=== PATIENT | female | born 2000 | race Hispanic/Latino ===

== ENCOUNTER 2024-04-17 22:00 | Emergency (ER) | payer SELFPAY ==
--- OUTSIDE RECORDS SUMMARY | 2024-04-17 22:03 | XMS REPORT | Continuity of Care Document ---
Author Name Unknown Address [address] [facility] [address] [place] [address] [facility] Address [address] [facility] [address] [place] [address] Care Team Providers Care Training Lead Name Role Phone Pcp, Patient Does Not Have A Primary Care Physic bertha GABRIELA ROE Attending Clinician Unavailable Gabriela Sullivan Attending Clinician JODY ALONSO Attending Clinician Unavailable CHAYA HENDRICKSON Attending Clinician Unava ilable CHAYA HENDRICKSON Admitting Clinician Unava ilable Payers Payer Name Policy Type Policy Number Effective Date Expirati on Date Source [facility] [id number] 2019 00:00:00 FORMERLY [facility] MEDICAID [id number] 2022 00:00:00 Problems Condition Name Condition Details Condition Category Status Onset Date Resolution Date Last Treatment Date Treating Clinician Comments Source No known active problems No known active problems Disease [facility] Allergies, Adverse Reactions, Alerts Allergy Name Allergy Type Status Severity Reaction(s) Onset Date Inactive Date Treating Clinician Comments Source NO KNOWN ALLERGIE S Drug Class Active [facility] Social History Social Habit Start Date Stop Date Quantity Comments Source Exposure to SARS-CoV-2 (event) 2022-03-15 00:00:00 2022-03-25 08:14:00 Unable to assess [facility] Sex Assigned At 2000 00:00:00 2000 00:00:00 [facility] Smoking Status Start Date Stop Date Source Tobacco smoking consumption unknown [facility] Medications Ordered Medication Name Filled Medication Name Start Date Stop Date Current Medication? Ordering Clinician Indication Dosage Frequency Signature (SIG) Comments Components Source naproxen 500 mg tablet 03-25 00:00: 00 Yes [id number] 500mg Take 1 tablet by mouth in the morning and 1 tablet in the evening. Take with meals. [facility] methocarbam oL 500 mg tablet 03-25 00:00: 00 Yes [id number] 500mg Take 1 tablet by mouth 4 (four) times daily as needed (muscle pain). [facility] methylPREDN ISolone 4 mg tablets 03-25 00:00: 00 Yes [id number] Take by mouth SEE-INSTRU CTIONS. follow package directions [facility] Vital Signs Vital Name Observation Time Observation Value Comments S ource Systolic blood pressure 2022-03-25 13:19:00 128 mm[Hg] [facility] Diastolic blood pressure 2022-03-25 13:19:00 73 mm[Hg] [facility] Heart rate 2022-03-25 13:19:00 60 /min [facility] Body temperature 2022-03-25 13:19:00 36.17 Lisandra [facility] Respiratory rate 2022-03-25 13:19:00 18 /min [facility] Body weight 2022-03-25 13:19:00 108.41 kg [facility] Oxygen saturation in Arterial blood by Pulse oximetry 2022-03-25 13:19:00 100 /min [facility] Procedures Procedure Date / Time Performed Performing Clinicia n Source POCT TEST 2022-03-25 13:51:00 Gabriela Roe [facility] NOTICE OF PRIVACY PRACTICES 2022-03-25 13:19:18 Doctor Unassigned, [place] [facility] CONSENT/REFUSAL FOR DIAGNOSIS AND TREATMENT 2022-03-25 13:14:36 Doctor Unassigned, [place] [facility] Encounters Start Date/Time End Date/Time Encounter Type Admission Type Attending Clinicians Care Facility Care Department Encounter ID Source 2021-02-27 15:14:08 Outpatient [facility] [id number] [facility] 2021-01-13 03:02:35 Outpatient [facility] [id number] [facility] 2022-03-25 08:21:00 2022-03-25 09:11:00 Emergency X GABRIELA ROE [facility] ERT [id number] [facility] 2022-03-25 08:21:00 2022-03-25 09:11:00 Emergency Gabriela Roe [facility] [id number] [facility] 2021-05-13 17:47:00 2021-05-13 20:58:00 Emergency E JODY ALONSO [facility] [id number] [facility] 2021-04-16 16:01:00 2021-04-20 15:35:00 Inpatient E [facility]A [facility] [id number] [facility] 2019-06-15 20:03:00 2019-06-15 20:03:00 Emergency E [facility] [id number] [facility] Results Test Description Test Time Test Comments Results Result Co mments Source [facility]
--- NOTE | 2024-04-17 22:38 | RAD REPORT ---
EXAM DESCRIPTION: RAD - Hand Right 3 View - 04/17/2024 10:23 pm CLINICAL HISTORY: Right hand pain status post injury FINDINGS: Mildly displaced fracture proximal aspect of the fifth proximal phalanx No dislocation
[2024-04-17] MEDS ORDERED: IBUPROFEN 200 MG TAB PO ONE (23:28)
[2024-04-17] MEDS ORDERED: IBUPROFEN 400 MG TAB ONE (23:28)
[2024-04-17] MEDS ORDERED: HYDROCODONE/APAP 5/325 MG TAB ONE (23:29)
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
[2024-04-18 01:09] VITALS: TEMP 98; O2SAT 100
[2024-04-18 01:10] VITALS: BP 115/65
== END 2024-04-17 23:58 | disposition home or self-care (01) ==
LOC: ER 22:00
PROC: 2W3JX1Z Immobilization of Right Finger using Splint (ICD-10-PCS; principal; 2024-04-17)
DX: S62.616A Displaced fracture of proximal phalanx of right little finger, initial encounter for closed fracture (principal)
CPT/HCPCS: 99283